=== PATIENT | female | born 1975 | race Caucasian/White ===

== ENCOUNTER 2016-08-26 08:26 | Emergency (ER) | payer SELFPAY ==
[~2016-08-26 08:26] MED LIST: DICY20TA3 PO; ONDA4TAB7 PO; SULF1TAB24 PO
[2016-08-26 08:42] VITALS: BP 171/110
--- NOTE | 2016-08-26 08:46 | PHYS DOC ---
Past Medical History Past Medical History: No Pertinent History Past Surgical History: Cholecystectomy, Tubal ligation Smokin Pack Per Day Alcohol Use: Occasionally Drug Use: None Adult General Chief Complaint Chief Complaint: SORE THROAT HPI HPI Patient is a 40 year old female who presents with sore throat for 5 days. She reports fever up to 103F. She has also had nasal congestion, left ear pain, and productive cough. She denies shortness of breath. She states that multiple family members have had upper respiratory infections believed to be viral. She relates that she typically gets "tonsillitis" annually. Her PCP is Dr. Mas. Review of Systems Review of Systems Constitutional: Reports fevers. Eyes: Denies change in visual acuity, redness, or eye pain. [] HENT: Reports sore throat, nasal congestion, and left ear pain. Respiratory: Denies shortness of breath. Reports productive cough. Cardiovascular: Denies chest pain, palpitations or edema. [] GI: Denies abdominal pain, nausea, vomiting, bloody stools or diarrhea. [] Musculoskeletal: Denies back pain or joint pain. [] Integument: Denies rash or skin lesions. [] Neurologic: Denies headache, focal weakness or sensory changes. [] Allergies Allergies Allergies Coded Allergies Type Severity Reaction Last Updated Verified terbutaline Allergy Severe 04/21/16 Yes Physical Exam Physical Exam Constitutional: Well developed, well nourished, no acute distress, non-toxic appearance. [] HENT: Normocephalic, atraumatic, bilateral external ears normal, oropharynx moist, no oral exudates, nose normal. Bilateral TMs without erythema or bulging. There is significant posterior pharyngeal erythema with bilateral tonsillar edema and exudates. There is no evidence of peritonsillar abscess or uvular deviation. Eyes: PERRLA, EOMI, conjunctiva normal, no discharge. [] Neck: Normal range of motion, no tenderness, supple, no stridor. [] Cardiovascular: Heart rate regular rhythm, no murmur [] Lungs & Thorax: Bilateral breath sounds clear to auscultation without wheezes, rales, or rhonchi. Skin: Warm, dry, no erythema, no rash. [] Neurologic: Alert and oriented X 3, normal motor function, normal sensory function, no focal deficits noted. [] Psychologic: Affect normal, judgement normal, mood normal. [] EKG EKG [] Radiology/Procedures Radiology/Procedures [] Course & Med Decision Making Course & Med Decision Making Pertinent Labs and Imaging studies reviewed. (See chart for details) Patient presents with sore throat and fever. There is no evidence of peritonsillar abscess. Rapid strep is positive. Patient is given an IM injection of Bicillin in the emergency department. She is instructed to take Tylenol or Motrin for fever or pain and increase her fluid intake. Return precautions were discussed. She verbalizes understanding and agrees with plan. Dragon Disclaimer Dragon Disclaimer This electronic medical record was generated, in whole or in part, using a voice recognition dictation system. Departure Departure Impression: Primary Impression: Strep throat Disposition: HOME, SELF-CARE Condition: STABLE Referrals: Ry MAS MD (PCP) Patient Instructions: Strep Throat, [id number] Additional Instructions: Your strep test was positive. You were given a shot of antibiotics in the emergency department. You should not require any additional treatment for the strep infection. Please take Tylenol or Motrin for fever or pain. Use according to package instructions. Please increase your fluid intake to remain hydrated. Return to the emergency department if you have high fever not responding to medication, difficulty breathing, difficulty swallowing, or other new or concerning symptoms. TOMY NELSON Aug 26, 2016 08:45
[2016-08-26] MEDS ORDERED: PENICILLIN G BENZATHINE LA 1,200,000 UNIT/2 ML DISP.SYRIN. IM ONE (09:15)
[2016-08-26 09:29] LABS: NEGATIVE OBC STREP NEG; POSITIVE OBC STREP POS
== END 2016-08-26 09:07 | disposition home or self-care (01) ==
LOC: ER 08:26
DX: J02.0 Streptococcal pharyngitis (principal); F17.200 Nicotine dependence, unspecified, uncomplicated; Z88.8 Allergy status to other drugs, medicaments and biological substances
CPT/HCPCS: 87880; 96372; 99283; J0561

== ENCOUNTER 2016-10-18 09:21 | Emergency (ER) | payer SELFPAY ==
[~2016-10-18] VITALS: Ht 165.1 cm; Wt 86.2 kg
--- NOTE | 2016-10-18 09:51 | PHYS DOC ---
Past Medical History Past Medical History: No Pertinent History Past Surgical History: Cholecystectomy, Tubal ligation Alcohol Use: Occasionally Drug Use: Marijuana Adult General Chief Complaint Chief Complaint: FEVER HPI HPI Patient is a 40 year old female with history of cholecystectomy, who presents with fever, diarrhea nausea and vomiting that began 3 days ago. Patient is also complaining of generalized bilateral upper abdominal pain. Patient denies any hematemesis or melena. Review of Systems Review of Systems Constitutional: Denies fever or chills [] Eyes: Denies change in visual acuity, redness, or eye pain [] HENT: Denies nasal congestion or sore throat [] Respiratory: Denies cough or shortness of breath [] Cardiovascular: No additional information not addressed in HPI [] GI: abdominal pain nausea and vomiting, diarrhea : Denies dysuria or hematuria [] Musculoskeletal: Denies back pain or joint pain [] Integument: Denies rash or skin lesions [] Neurologic: Denies headache, focal weakness or sensory changes [] Endocrine: Denies polyuria or polydipsia [] Current Medications Current Medications Current Medications Medications (Trade) Dose Ordered Sig/John Start Time Stop Time Status Last Admin Dose Admin Famotidine (Pepcid) 20 mg 1X ONCE 10/18/16 10:00 10/18/16 10:01 DC 10/18/16 10:14 20 MG Ketorolac Tromethamine (Toradol) 30 mg 1X ONCE 10/18/16 10:00 10/18/16 10:01 DC 10/18/16 10:14 30 MG Ondansetron HCl (Zofran) 4 mg 1X ONCE 10/18/16 10:00 10/18/16 10:01 DC 10/18/16 10:14 4 MG Sodium Chloride (Iv Sodium Chloride 0.9% 1000ml Bag) 1,000 ml @ 1,000 mls/hr 1X ONCE 10/18/16 10:00 10/18/16 10:59 DC 10/18/16 10:15 1,000 MLS/HR Allergies Allergies Allergies Coded Allergies Type Severity Reaction Last Updated Verified terbutaline Allergy Severe 04/21/16 Yes Physical Exam Physical Exam Constitutional: Well developed, well nourished, no acute distress, non-toxic appearance. [] HENT: Normocephalic, atraumatic, bilateral external ears normal, oropharynx moist, no oral exudates, nose normal. [] Eyes: PERRLA, EOMI, conjunctiva normal, no discharge. [] Neck: Normal range of motion, no tenderness, supple, no stridor. [] Cardiovascular:Heart rate regular rhythm, no murmur [] Lungs & Thorax: Bilateral breath sounds clear to auscultation [] Abdomen: Bowel sounds normal, soft, diffuse tenderness to bilateral upper abdomen, negative Cordero's sign, negative psoas sign, negative obturator sign, no guarding no rebound pain or tenderness no masses, no pulsatile masses. [] Skin: Warm, dry, no erythema, no rash. [] Back: No tenderness, no CVA tenderness. [] Extremities: No tenderness, no cyanosis, no clubbing, ROM intact, no edema. [] Neurologic: Alert and oriented X 3, normal motor function, normal sensory function, no focal deficits noted. [] Psychologic: Affect normal, judgement normal, mood normal. [] Current Patient Data Vital Signs Vital Signs Date Time Temp Pulse Resp B/P Pulse Ox O2 Delivery O2 Flow Rate FiO2 10/18/16 09:24 97.5 118 24 130/87 98 97.5 Lab Values Laboratory Tests Test 10/18/16 09:30 10/18/16 10:00 Influenza Type A Antigen Negative (NEGATIVE) Influenza Type B Antigen Positive (NEGATIVE) White Blood Count 15.1x10^3/uL (4.0-11.0) H Red Blood Count 4.66x10^6/uL (3.50-5.40) Hemoglobin 14.3g/dL (12.0-15.5) Hematocrit 42.8% (36.0-47.0) Mean Corpuscular Volume 92fL (79-100) Mean Corpuscular Hemoglobin 31pg (25-35) Mean Corpuscular Hemoglobin Concent 33g/dL (31-37) Red Cell Distribution Width 14.6% (11.5-14.5) H Platelet Count 195x10^3/uL (140-400) Neutrophils (%) (Auto) 77% (31-73) H Lymphocytes (%) (Auto) 16% (24-48) L Monocytes (%) (Auto) 6% (0-9) Eosinophils (%) (Auto) 0% (0-3) Basophils (%) (Auto) 1% (0-3) Neutrophils # (Auto) 11.6x10^3uL (1.8-7.7) H Lymphocytes # (Auto) 2.4x10^3/uL (1.0-4.8) Monocytes # (Auto) 0.9x10^3/uL (0.0-1.1) Eosinophils # (Auto) 0.0x10^3/uL (0.0-0.7) Basophils # (Auto) 0.2x10^3/uL (0.0-0.2) Sodium Level 139mmol/L (136-145) Potassium Level 3.4mmol/L (3.5-5.1) L Chloride Level 100mmol/L (98-107) Carbon Dioxide Level 26mmol/L (21-32) Anion Gap 13 (6-14) Blood Urea Nitrogen 13mg/dL (7-20) Creatinine 1.0mg/dL (0.6-1.0) Estimated GFR (Cockcroft-Gault) 61.1 Glucose Level 117mg/dL (70-99) H Calcium Level 9.2mg/dL (8.5-10.1) Laboratory Tests 10/18/16 10:00 Laboratory Tests 10/18/16 10:00 EKG EKG [] Radiology/Procedures Radiology/Procedures [] Course & Med Decision Making Course & Med Decision Making Pertinent Labs and Imaging studies reviewed. (See chart for details) Patient is in the ED with generalized bilateral upper abdominal pain nausea vomiting and diarrhea for 3 days. She is also complaining of fevers. She is afebrile in the ED. She was tachycardic on arrival with a heart rate of 118. Patient was given 1 L of IV fluid Zofran and Toradol and famotidine. She states she is feeling very well. Chest x-ray interpreted by radiologist as negative for any acute findings. Positive for influenza B. Patient's symptoms are viral. Discharged with instructions to push fluids. Maintain good hand hygiene. Discharged with Zofran. Provided return precautions and discharged in stable condition. Dragon Disclaimer Dragon Disclaimer This electronic medical record was generated, in whole or in part, using a voice recognition dictation system. Departure Departure Impression: Primary Impression: Influenza B Additional Impressions: Vomiting and diarrhea Tachycardia Disposition: HOME, SELF-CARE Condition: STABLE Referrals: Ry MAS MD (PCP) Follow-up with your own doctor in the next 1 week. Patient Instructions: Diarrhea, [id number], Nausea and Vomiting Additional Instructions: You tested positive for influenza B. This is a viral illness. It causes vomiting diarrhea and fevers. Please push fluids. Maintain good hand hygiene at home. Take Tylenol every 4 hours and Motrin every 6 hours as needed for pain or fever. Take the prescribed nausea medicine as needed. Follow-up with your own doctor in one week or sooner. Come to the ED if symptoms worsen. Scripts Ondansetron (Zofran Odt)4 Mg Tab.rapdis1 Tab SL Q8HRS #15 TAB Prov:SUJEY MCBRIDE APRN 10/18/16 Problem Qualifiers SUJEY MCBRIDE APRN Oct 18, 2016 09:51
[2016-10-18] MEDS ORDERED: KETOROLAC TROMETHAMINE 30 MG/ML SYRINGE. IV ONE (10:00)
[2016-10-18] MEDS ORDERED: ONDANSETRON PF 4 MG/2 ML VIAL. IV ONE (10:00)
[2016-10-18] MEDS ORDERED: FAMOTIDINE 20 MG/2 ML VIAL IVP ONE (10:00)
[2016-10-18] MEDS ORDERED: IV NORMAL SALINE 1000ML BAG 1,000 ML IV ONE (10:00)
[2016-10-18 10:03] LABS: OBC FLU VALID
--- NOTE | 2016-10-18 10:04 | RAD ---
Portable chest, 10/18/2016: History: Fever, shortness of breath, rib pain Comparison is made to a study from 03/24/2012. The heart size and pulmonary vascularity are normal. No pulmonary infiltrates are seen. There is no evidence of pleural fluid. IMPRESSION: No acute cardiopulmonary abnormality is detected.
[2016-10-18 10:21] LABS: BASO # 0.2 x10^3/uL (0.0-0.2); BASO % 1 % (0-3); EOS % 0 % (0-3); HEMATOCRIT 42.8 % (36.0-47.0); HEMOGLOBIN 14.3 g/dL (12.0-15.5); LYMPH # 2.4 x10^3/uL (1.0-4.8); LYMPH % 16 % (24-48); MEAN CORPUSCULAR HEMOGLOBIN 31 pg (25-35); MEAN CORPUSCULAR HGB CONC 33 g/dL (31-37); MEAN CORPUSCULAR VOLUME 92 fL (79-100); MONO % 6 % (0-9); NEUT % 77 % (31-73); PLATELET COUNT 195 x10^3/uL (140-400); RED BLOOD COUNT 4.66 x10^6/uL (3.50-5.40); RED CELL DISTRIBUTION WIDTH 14.6 % (11.5-14.5); WHITE BLOOD COUNT 15.1 x10^3/uL (4.0-11.0)
[2016-10-18 10:37] LABS: CALCIUM 9.2 mg/dL (8.5-10.1); GFR 61.1; POTASSIUM 3.4 mmol/L (3.5-5.1)
[2016-10-18 11:26] LABS: BILIRUBIN,URINE SMALL (NEG); GLUCOSE,URINE NEGATIVE (NEG); NITRITE,URINE NEGATIVE (NEG); PH,URINE 5.5; PROTEIN,URINE >=300 mg/dL (NEG-TRACE)
[2016-10-18] MEDS ORDERED: ONDA4TAB10 SL (11:41)
[2016-10-18 11:45] VITALS: BP 119/76
[2016-10-18 11:46] LABS: BACTERIA,URINE 0 /HPF (0-FEW); RBC,URINE TNTC /HPF (0-2)
== END 2016-10-18 11:55 | disposition home or self-care (01) ==
LOC: ER 09:21
DX: J11.1 Influenza due to unidentified influenza virus with other respiratory manifestations (principal); R11.2 Nausea with vomiting, unspecified; R19.7 Diarrhea, unspecified; R00.0 Tachycardia, unspecified; F12.10 Cannabis abuse, uncomplicated; Z88.8 Allergy status to other drugs, medicaments and biological substances
CPT/HCPCS: 36415; 71010; 80048; 81001; 85027; 87086; 87804; 96361; 96374; 96375; 99285; J1885; J2405; J7030; S0028

== ENCOUNTER 2017-05-10 22:24 | Emergency (ER) | payer SELFPAY ==
[~2017-05-10] VITALS: Ht 165.1 cm; Wt 86.2 kg
[~2017-05-10 22:24] MED LIST changes: +ONDA4TAB10 SL
[2017-05-10 22:50] VITALS: BP 187/110
[2017-05-10] MEDS ORDERED: DIPHTH,PERTUSS(ACELL),TET TOX 0.5 ML DISP.SYRIN. VAX IM ONE (23:30)
[2017-05-10] MEDS ORDERED: LIDOCAINE/EPI/TETRACAINE TOPICAL GEL 3 ML. TP ONE ×2 (23:30)
[2017-05-10] MEDS ORDERED: LIDOCAINE 1% / SOD BICARB 8.4% 20 ML VIAL. IJ ONE (23:30)
--- NOTE | 2017-05-11 00:02 | PHYS DOC ---
Past Medical History Past Medical History: No Pertinent History Past Surgical History: Cholecystectomy, Tubal ligation Alcohol Use: Occasionally Drug Use: Marijuana Adult General Chief Complaint Chief Complaint: ANIMAL BITE HPI HPI Patient is a 41 year old female who presents with dog bite to the right lower extremity. Patient got bit by her own pitbull mix dog. Review of Systems Review of Systems Constitutional: Denies fever or chills [] Musculoskeletal: Denies back pain or joint pain [] Integument: dog bite to the right lower extremity Neurologic: Denies headache, focal weakness or sensory changes [] Current Medications Current Medications Current Medications Medications (Trade) Dose Ordered Sig/John Start Time Stop Time Status Last Admin Dose Admin Diphtheria/ Tetanus/Acell Pertussis (Boostrix) 0.5 ml ONCE ONCE 05/10/17 23:30 05/10/17 23:31 DC 05/10/17 23:21 0.5 ML Lidocaine/ Epinephrine (Let Topical) 3 ml 1X ONCE 05/10/17 23:30 05/10/17 23:31 DC 05/10/17 23:19 3 ML Lidocaine/Sodium Bicarbonate (Buffered Lidocaine 1%) 20 ml 1X ONCE 05/10/17 23:30 05/10/17 23:31 DC 05/10/17 23:24 20 ML Allergies Allergies Allergies Coded Allergies Type Severity Reaction Last Updated Verified terbutaline Allergy Severe 04/21/16 Yes Physical Exam Physical Exam Constitutional: Well developed, well nourished, no acute distress, non-toxic appearance. [] Skin: right Achilles tendon area with a dog bite horizontal laceration approx. 13X3X2 cm. Patient able to flex and extend the foot with negative sharma sign. +2 right pedal pulse. Cap refill <2 seconds to the RLE Back: No tenderness, no CVA tenderness. [] Extremities: No tenderness, no cyanosis, no clubbing, ROM intact, no edema. [] Neurologic: Alert and oriented X 3, normal motor function, normal sensory function, no focal deficits noted. [] Psychologic: Affect normal, judgement normal, mood normal. [] Current Patient Data Vital Signs Vital Signs Date Time Temp Pulse Resp B/P (MAP) Pulse Ox O2 Delivery O2 Flow Rate FiO2 05/10/17 22:50 98.3 90 19 99 Room Air 98.3 EKG EKG [] Radiology/Procedures Radiology/Procedures Indication: Dog bite to the right lower extremity Procedure: The patient was placed in the appropriate position and anesthesia around the left solution then 1% buffered lidocaine, the area was explored for foreign objects, none was found. The area was cleaned with 500 ML of normal saline and 30 mL of Betadine. The inner lacerations were closed with 4 interrupted sutures using 3. 0 Vicryl, exterior laceration was closed with 19 interrupted sutures using 3. 0 Ethilon. There is also 1 cm laceration next to this area. It was closed with one interrupted sutures using 3. 0 Ethilon. The wound was covered with nonstick dressing. Course & Med Decision Making Course & Med Decision Making Pertinent Labs and Imaging studies reviewed. (See chart for details) Patient has right lower extremity dog bite. Right tib-fib x-rays interpreted by Dr. Kern were negative for any acute findings. Patient's dog bite was very deep. I had to put loose stitches just to bring the skin together. She was provided proper wound care instructions as well as return precautions, she was discharged on Augmentin. Tetanus was updated. Dragon Disclaimer Dragon Disclaimer This electronic medical record was generated, in whole or in part, using a voice recognition dictation system. Departure Departure Impression: Primary Impression: Dog bite of right lower leg Disposition: 01 HOME, SELF-CARE Condition: STABLE Referrals: Ry ANDRES MD (PCP) see your doctor in 7 days for suture removal Patient Instructions: Animal Bite Additional Instructions: You were seen for a dog bite to the right lower extremity. Keep the area very clean and dry. Apply Neosporin to the area twice a day. Complete your oral antibiotics. Follow up with Dr. Andres or the emergency room in 7 days for stitches removal. Monitor the area very closely. Signs of infection including increased redness, yellow drainage from the area, increased warmth to the area and return to the ED see Dr. Andres if they occur. If you have a fever you return to the hospital. Scripts Hydrocodone/Apap 5-325 (NORCO 5-325 TABLET) 1 Each Tablet 1-2 TAB PO Q4-6HRS, #20 TAB Prov: MUTUNGASUJEY RUNNER ON 05/11/17 Amoxicillin/Potassium Clav (AUGMENTIN 875-125 TABLET) 1 Each Tablet 1 TAB PO BID, #20 TAB Prov: MUTUNGA,SUJEY RUNNER ON 05/11/17 Problem Qualifiers Primary Impression: Dog bite of right lower leg Encounter type: initial encounter Qualified Codes: S81.851A - Open bite, right lower leg, initial encounter; W54.0XXA - Bitten by dog, initial encounter SUJEY MCBRIDE APRN May 11, 2017 00:02
[2017-05-11] MEDS ORDERED: AMOX1TAB61 PO (00:56)
[2017-05-11] MEDS ORDERED: HYDR-971 PO (00:56)
--- NOTE | 2017-05-11 07:59 | RAD ---
Right tibia and fibula, 2 views, 05/10/2017: History: Dog bite No fracture or bony abnormality is detected. There is mild subcutaneous edema. IMPRESSION: No acute bony abnormality is detected.
== END 2017-05-11 01:01 | disposition home or self-care (01) ==
LOC: ER 22:24
DX: S81.851A Open bite, right lower leg, initial encounter (principal); Z88.8 Allergy status to other drugs, medicaments and biological substances; W54.0XXA Bitten by dog, initial encounter; Y93.89 Activity, other specified; Y92.89 Other specified places as the place of occurrence of the external cause; Y99.8 Other external cause status
CPT/HCPCS: 12035; 73590; 90471; 90715; 99284-25

== ENCOUNTER 2017-10-18 09:58 | Emergency (ER) | payer SELFPAY ==
[2017-10-18] MEDS: ALBUTEROL SULFATE 2.5 MG/3 ML NEBU. NEB (10:33)
[2017-10-18] MEDS: predniSONE 10 MG TABLET PO (10:53)
[2017-10-18 10:55] LABS: INFLUENZA A PATIENT NEGATIVE (NEGATIVE); INFLUENZA B PATIENT NEGATIVE (NEGATIVE); OBC FLU VALID
== END 2017-10-18 12:05 | disposition home or self-care (01) ==
LOC: ER 09:58
DX: J40 Bronchitis, not specified as acute or chronic (principal); F12.10 Cannabis abuse, uncomplicated; F17.200 Nicotine dependence, unspecified, uncomplicated; Z90.49 Acquired absence of other specified parts of digestive tract; Z98.51 Tubal ligation status; Z87.01 Personal history of pneumonia (recurrent); Z88.8 Allergy status to other drugs, medicaments and biological substances
CPT/HCPCS: 71046; 87804; 87804-59; 94640; 99285-25; J7512; J7613

== ENCOUNTER 2018-09-05 08:04 | Emergency (ER) | payer SELFPAY ==
[~2018-09-05] VITALS: Ht 167.6 cm; Wt 83.9 kg
[~2018-09-05 08:04] MED LIST changes: +ALBU2.5V8 INH; +AMOX1TAB61 PO; +AZIT250T PO; +HYDR-3164 PO; +PRED50TA PO
[2018-09-05] MEDS ORDERED: IV NORMAL SALINE 1000ML BAG 1,000 ML IV SCH (08:22)
--- NOTE | 2018-09-05 08:29 | PHYS DOC ---
Past Medical History Past Medical History: COPD, Pancreatitis Past Surgical History: Cholecystectomy, Tubal ligation Smoking: Cigarettes, Less than 1pk/day Alcohol Use: Occasionally Drug Use: Marijuana Adult General Chief Complaint Chief Complaint: "I've been sick for a month" HPI HPI Patient presents to the emergency department for evaluation. She states that she has had "congestion" in her nose and chest for the past month, along with a couple of weeks of intermittent nausea vomiting and diarrhea, which has increased over the past few days. She states she vomited numerous times over the past 3-4 hours. She has not had any bloody emesis, bloody diarrhea. She denies any focal pain. She has not had any fevers or chills, headache, chest pain, abdominal pain, numbness or weakness. She has not had any productive cough. There are no alleviating or exacerbating factors to her symptoms. Review of Systems Review of Systems Constitutional: Denies fever or chills [] Eyes: Denies change in visual acuity, redness, or eye pain [] HENT: Denies otalgia or sore throat [] Respiratory: Reports chest congestion and shortness of breath.[] Cardiovascular: The patient denies any shortness of breath, chest pain, palpitations, or orthopnea [] GI: Denies abdominal pain, bloody stools or diarrhea [] : Denies dysuria or hematuria [] Musculoskeletal: Denies back pain or joint pain [] Integument: Denies rash or skin lesions [] Neurologic: Denies headache, focal weakness or sensory changes [] Endocrine: Denies polyuria or polydipsia [] All other systems were reviewed and found to be within normal limits, except as documented in this note. Current Medications Current Medications Current Medications Medications (Trade) Dose Ordered Sig/[facility] Start Time Stop Time Status Last Admin Dose Admin Albuterol/ Ipratropium (Duoneb) 3 ml 1X ONCE 09/05/18 08:30 09/05/18 08:31 DC 09/05/18 08:36 3 ML Methylprednisolone Sodium Succinate (SOLU-Medrol 125MG VIAL) 125 mg 1X ONCE 09/05/18 08:30 09/05/18 08:31 DC 09/05/18 08:47 125 MG Ondansetron HCl (Zofran) 4 mg 1X ONCE 09/05/18 08:30 09/05/18 08:31 DC 09/05/18 08:45 4 MG Sodium Chloride 1,000 ml @ 1,000 mls/hr Q1H 09/05/18 08:22 09/05/18 09:21 DC 09/05/18 08:45 1,000 MLS/HR Allergies Allergies Allergies Coded Allergies Type Severity Reaction Last Updated Verified terbutaline Allergy Severe 04/21/16 Yes Physical Exam Physical Exam PHYSICAL EXAM: CONSTITUTIONAL: Well developed, well nourished HEAD: normocephalic, atraumatic EENT: PERRL, EOMI. Conjunctivae normal color, sclerae non-icteric; moist mucous membranes. NECK: Supple, non-tender; no meningismus. LUNGS: There are scattered coarse wheezes in all lung terrell, CTA, breathing even and unlabored. Normal air movement. HEART: Regular rate and rhythm, no murmur CHEST: No deformity; non-tender ABDOMEN: The abdomen is soft, and non-tender, no masses or bruits. EXTREM: Normal ROM; no deformity, no calf tenderness. Normal pulses palpable in all extremities. There is no pedal edema. SKIN: No rash; no diaphoresis NEURO: Alert; normal speech and cognition; CN's grossly intact; strength grossly intact without focal deficit. BACK: No CVA TTP. Current Patient Data Vital Signs Vital Signs Date Time Temp Pulse Resp B/P (MAP) Pulse Ox O2 Delivery O2 Flow Rate FiO2 09/05/18 08:38 97 Room Air 09/05/18 08:09 97.9 108 18 131/99 (110) 97.9 Lab Values Laboratory Tests Test 09/05/18 08:20 09/05/18 08:40 Influenza Type A Antigen Negative (NEGATIVE) Influenza Type B Antigen Negative (NEGATIVE) White Blood Count 10.2 x10^3/uL (4.0-11.0) Red Blood Count 4.26 x10^6/uL (3.50-5.40) Hemoglobin 13.2 g/dL (12.0-15.5) Hematocrit 38.9 % (36.0-47.0) Mean Corpuscular Volume 91 fL (79-100) Mean Corpuscular Hemoglobin 31 pg (25-35) Mean Corpuscular Hemoglobin Concent 34 g/dL (31-37) Red Cell Distribution Width 14.7 % (11.5-14.5) H Platelet Count 303 x10^3/uL (140-400) Neutrophils (%) (Auto) 65 % (31-73) Lymphocytes (%) (Auto) 25 % (24-48) Monocytes (%) (Auto) 6 % (0-9) Eosinophils (%) (Auto) 3 % (0-3) Basophils (%) (Auto) 1 % (0-3) Neutrophils # (Auto) 6.6 x10^3uL (1.8-7.7) Lymphocytes # (Auto) 2.5 x10^3/uL (1.0-4.8) Monocytes # (Auto) 0.6 x10^3/uL (0.0-1.1) Eosinophils # (Auto) 0.3 x10^3/uL (0.0-0.7) Basophils # (Auto) 0.1 x10^3/uL (0.0-0.2) Sodium Level 138 mmol/L (136-145) Potassium Level 3.9 mmol/L (3.5-5.1) Chloride Level 100 mmol/L (98-107) Carbon Dioxide Level 24 mmol/L (21-32) Anion Gap 14 (6-14) Blood Urea Nitrogen 6 mg/dL (7-20) L Creatinine 0.9 mg/dL (0.6-1.0) Estimated GFR (Cockcroft-Gault) 68.3 BUN/Creatinine Ratio 7 (6-20) Glucose Level 106 mg/dL (70-99) H Calcium Level 9.1 mg/dL (8.5-10.1) Total Bilirubin 0.4 mg/dL (0.2-1.0) Aspartate Amino Transferase (AST) 16 U/L (15-37) Alanine Aminotransferase (ALT) 24 U/L (14-59) Alkaline Phosphatase 80 U/L (46-116) Total Protein 7.9 g/dL (6.4-8.2) Albumin 3.6 g/dL (3.4-5.0) Albumin/Globulin Ratio 0.8 (1.0-1.7) L Laboratory Tests 09/05/18 08:40 Laboratory Tests 09/05/18 08:40 EKG EKG [] Radiology/Procedures Radiology/Procedures [PROCEDURE: CHEST PA & LATERAL EXAM: Chest, 2 views. HISTORY: Cough. COMPARISON: 10/18/2017 FINDINGS: 2 views of the chest are obtained. There is stable right infrahilar opacity likely due to prominent pulmonary vascular shadows. There is no consolidation, pleural effusion or pneumothorax. The heart is normal in size. There is a stable calcified granuloma within the lingula. There is stable left infrahilar atelectasis or scarring. IMPRESSION: No acute pulmonary finding.] Course & Med Decision Making Course & Med Decision Making Pertinent Labs and Imaging studies reviewed. (See chart for details) [9:30 AM: The patient's condition remains stable. She is feeling significantly better at this time, her breath sounds have improved. I discussed smoking cessation with the patient, the need for close follow-up, and return precautions.] Dragon Disclaimer Dragon Disclaimer This electronic medical record was generated, in whole or in part, using a voice recognition dictation system. Departure Departure Impression: Primary Impression: Bronchitis Additional Impression: Nausea vomiting and diarrhea Disposition: 01 HOME, SELF-CARE Condition: STABLE Referrals: Ry MAS MD (PCP) Patient Instructions: Acute Bronchitis, Smoking Cessation, Viral Gastroenteritis Scripts Ondansetron Hcl (ZOFRAN) 4 Mg Tablet 1 TAB PO Q6HRS PRN for NAUSEA/VOMITING, #20 TAB Prov: BETH LUX MD 09/05/18 Albuterol Sulfate (PROAIR HFA INHALER) 8.5 Gm Hfa.aer.ad 1 PUFF INH PRN Q6HRS PRN for SHORTNESS OF BREATH, #1 INHALER 0 Refills Prov: BETH LUX MD 09/05/18 Prednisone (PREDNISONE) 20 Mg Tablet 40 MG PO DAILY for 5 Days, #10 TAB Prov: BETH LUX MD 09/05/18 Problem Qualifiers BETH LUX MD Sep 05, 2018 08:29
[2018-09-05] MEDS ORDERED: ONDANSETRON PF 4 MG/2 ML VIAL. IV ONE (08:30)
[2018-09-05] MEDS ORDERED: methylPREDNISolone SOD SUCC PF 125 MG/2 ML VIAL. IV ONE (08:30)
[2018-09-05] MEDS ORDERED: IPRATRPIUM/ALBUTEROL 0.5/2.5MG 3 ML NEBU. NEB ONE (08:30)
[2018-09-05 08:45] LABS: INFLUENZA A PATIENT NEGATIVE (NEGATIVE); INFLUENZA B PATIENT NEGATIVE (NEGATIVE)
--- NOTE | 2018-09-05 08:51 | RAD ---
EXAM: Chest, 2 views. HISTORY: Cough. COMPARISON: 10/18/2017 FINDINGS: 2 views of the chest are obtained. There is stable right infrahilar opacity likely due to prominent pulmonary vascular shadows. There is no consolidation, pleural effusion or pneumothorax. The heart is normal in size. There is a stable calcified granuloma within the lingula. There is stable left infrahilar atelectasis or scarring. IMPRESSION: No acute pulmonary finding. Electronically signed by: Geraldine Oliva MD (09/05/2018 8:46 AM) [place] [id number]
[2018-09-05 08:57] LABS: BASO # 0.1 x10^3/uL (0.0-0.2); BASO % 1 % (0-3); EOS # 0.3 x10^3/uL (0.0-0.7); EOS % 3 % (0-3); HEMATOCRIT 38.9 % (36.0-47.0); HEMOGLOBIN 13.2 g/dL (12.0-15.5); LYMPH # 2.5 x10^3/uL (1.0-4.8); LYMPH % 25 % (24-48); MEAN CORPUSCULAR HEMOGLOBIN 31 pg (25-35); MEAN CORPUSCULAR HGB CONC 34 g/dL (31-37); MEAN CORPUSCULAR VOLUME 91 fL (79-100); MONO # 0.6 x10^3/uL (0.0-1.1); MONO % 6 % (0-9); NEUT # 6.6 x10^3uL (1.8-7.7); NEUT % 65 % (31-73); PLATELET COUNT 303 x10^3/uL (140-400); RED BLOOD COUNT 4.26 x10^6/uL (3.50-5.40); RED CELL DISTRIBUTION WIDTH 14.7 % (11.5-14.5); WHITE BLOOD COUNT 10.2 x10^3/uL (4.0-11.0)
[2018-09-05 09:01] LABS: CALCIUM 9.1 mg/dL (8.5-10.1); CREATININE 0.9 mg/dL (0.6-1.0); GFR 68.3; POTASSIUM 3.9 mmol/L (3.5-5.1)
[2018-09-05 09:06] LABS: ALBUMIN 3.6 g/dL (3.4-5.0); ALBUMIN/GLOBULIN RATIO 0.8 (1.0-1.7); TOTAL BILIRUBIN 0.4 mg/dL (0.2-1.0); TOTAL PROTEIN 7.9 g/dL (6.4-8.2)
[2018-09-05 09:30] VITALS: BP 120/81
[2018-09-05] MEDS ORDERED: PRED20TA PO (09:35)
[2018-09-05] MEDS ORDERED: ALBU2.5V8 INH (09:35)
[2018-09-05] MEDS ORDERED: ONDA4TAB7 PO (09:35)
== END 2018-09-05 09:50 | disposition home or self-care (01) ==
LOC: ER 08:04
DX: J44.9 Chronic obstructive pulmonary disease, unspecified (principal); R11.2 Nausea with vomiting, unspecified; R19.7 Diarrhea, unspecified; Z90.49 Acquired absence of other specified parts of digestive tract; F17.210 Nicotine dependence, cigarettes, uncomplicated; Z98.51 Tubal ligation status; Z88.8 Allergy status to other drugs, medicaments and biological substances
CPT/HCPCS: 36415; 71046; 80053; 85025; 87804; 94640; 96361; 96374; 96375; 99284; J2405; J2930; J7030; J7620

== ENCOUNTER 2019-01-10 21:53 | Emergency (ER) | payer SELFPAY ==
[~2019-01-10] VITALS: Ht 165.1 cm; Wt 83.9 kg
[~2019-01-10 21:53] MED LIST changes: +PRED20TA PO
[2019-01-10] MEDS ORDERED: DEXAMETHASONE 4 MG TABLET PO ONE (22:15)
[2019-01-10] MEDS ORDERED: IV NORMAL SALINE 1000ML BAG 1,000 ML IV ONE (22:30)
[2019-01-10 22:36] LABS: BILIRUBIN,URINE NEGATIVE (NEG); CLARITY,URINE CLEAR; COLOR,URINE YELLOW; NITRITE,URINE NEGATIVE (NEG); PROTEIN,URINE NEGATIVE (NEG-TRACE); UROBILINOGEN,URINE 0.2 mg/dL (0.2 mg/dL)
[2019-01-10 22:40] LABS: U PREG PATIENT NEGATIVE (NEG)
[2019-01-10 22:42] LABS: SQUAMOUS EPITHELIAL CELL,UR MOD /LPF
[2019-01-10 22:43] LABS: BACTERIA,URINE FEW /HPF (0-FEW); RBC,URINE OCC /HPF (0-2)
[2019-01-10 22:50] LABS: BASO # 0.1 x10^3/uL (0.0-0.2); BASO % 1 % (0-3); EOS # 0.3 x10^3/uL (0.0-0.7); EOS % 2 % (0-3); HEMATOCRIT 38.9 % (36.0-47.0); HEMOGLOBIN 13.1 g/dL (12.0-15.5); LYMPH # 3.3 x10^3/uL (1.0-4.8); LYMPH % 27 % (24-48); MEAN CORPUSCULAR HEMOGLOBIN 31 pg (25-35); MEAN CORPUSCULAR HGB CONC 34 g/dL (31-37); MEAN CORPUSCULAR VOLUME 91 fL (79-100); MONO # 0.6 x10^3/uL (0.0-1.1); MONO % 5 % (0-9); NEUT # 7.8 x10^3uL (1.8-7.7); NEUT % 65 % (31-73); PLATELET COUNT 278 x10^3/uL (140-400); RED BLOOD COUNT 4.27 x10^6/uL (3.50-5.40); RED CELL DISTRIBUTION WIDTH 14.5 % (11.5-14.5); WHITE BLOOD COUNT 12.2 x10^3/uL (4.0-11.0)
[2019-01-10 22:59] LABS: PARTIAL THROMBOPLASTIN TIME 31 SEC (24-38)
[2019-01-10 23:02] LABS: CALCIUM 9.1 mg/dL (8.5-10.1); CREATININE 0.8 mg/dL (0.6-1.0); GFR 77.9; POTASSIUM 3.8 mmol/L (3.5-5.1)
[2019-01-10 23:05] LABS: PROTHROMBIN TIME PATIENT 13.5 SEC (11.7-14.0)
[2019-01-10 23:09] LABS: D-DIMER < 0.27 ug/mlFEU (0.00-0.50)
[2019-01-10 23:17] LABS: ALBUMIN 3.6 g/dL (3.4-5.0); ALBUMIN/GLOBULIN RATIO 0.9 (1.0-1.7); TOTAL BILIRUBIN 0.2 mg/dL (0.2-1.0); TOTAL PROTEIN 7.4 g/dL (6.4-8.2)
--- NOTE | 2019-01-10 23:17 | RAD ---
CHEST PA LATERAL History: Cough Comparison: 09/05/2018; September 28, 2017; March 24, 2012 Findings: 2 views of the chest are submitted. There is again small round nodular opacity at the left lung base although present dating back to 2012 exam. There is no new lobar consolidation, pleural fluid, pneumothorax. Heart size is stable, within normal limits. Impression: 1. No acute radiographic abnormality is identified. Electronically signed by: Sherman Chan MD (01/10/2019 11:15 PM) [facility]
[2019-01-10 23:19] LABS: CREATINE KINASE 71 U/L (26-192)
--- NOTE | 2019-01-10 23:35 | PHYS DOC ---
Past Medical History Past Medical History: COPD, Pancreatitis Past Surgical History: Cholecystectomy, Tubal ligation Additional Information: 8 smokes a day. Alcohol Use: Occasionally Drug Use: Marijuana Adult General Chief Complaint Chief Complaint: SHORTNESS OF BREATH HPI HPI 43-year-old female presents with one-week history of shortness of breath despite utilization of inhalers and nebulizers at home. Patient also reports associated nausea, vomiting, and diarrhea. Patient denies known sick contacts. Denies fever or chills. Patient reports she is in a very day smoker. Denies leg swelling or calf tenderness. Patient does report some left-sided chest wall discomfort which is worse with deep inspiration. Denies history of PE/DVT. Review of Systems Review of Systems Constitutional: Denies fever or chills Eyes: Denies redness or eye pain HENT: Reports nasal congestion; denies sore throat Respiratory: Reports cough and shortness of breath Cardiovascular: Reports chest pain; denies palpitations GI: Denies abdominal pain, nausea, or vomiting : Denies dysuria or hematuria Musculoskeletal: Denies back pain or joint pain Integument: Denies rash or skin lesions Neurologic: Denies headache, focal weakness or sensory changes Complete systems were reviewed and found to be within normal limits, except as documented in this note. Current Medications Current Medications Current Medications Medications (Trade) Dose Ordered Sig/John Start Time Stop Time Status Last Admin Dose Admin Dexamethasone (Decadron) 10 mg 1X ONCE 01/10/19 22:15 01/10/19 22:16 DC 01/10/19 22:44 10 MG Ondansetron HCl (Zofran Odt) 4 mg STK-MED ONCE 01/10/19 23:43 01/10/19 23:44 DC Sodium Chloride 1,000 ml @ 1,000 mls/hr 1X ONCE 01/10/19 22:30 01/10/19 23:29 DC 01/10/19 22:45 1,000 MLS/HR Allergies Allergies Allergies Coded Allergies Type Severity Reaction Last Updated Verified terbutaline Allergy Severe 04/21/16 Yes Physical Exam Physical Exam Constitutional: Well developed, well nourished, no acute distress, non-toxic appearance HENT: Normocephalic, atraumatic, oropharynx moist, nasal congestion noted, pharynx without erythema or tonsillar exudate. Eyes: Conjunctiva normal, no discharge Neck: Normal range of motion, no tenderness, supple Cardiovascular: Heart rate normal, regular rhythm Lungs & Thorax: Bilateral breath sounds clear to auscultation, no wheezing/rhonchi/rales Abdomen: Soft, no tenderness Skin: Warm, dry, no erythema, no rash Extremities: No tenderness, ROM intact, no edema Neurologic: Alert and oriented X 3, no focal deficits noted Psychologic: Affect normal, judgement normal Current Patient Data Vital Signs Vital Signs Date Time Temp Pulse Resp B/P (MAP) Pulse Ox O2 Delivery O2 Flow Rate FiO2 01/11/19 00:52 90 24 127/85 (99) 97 Room Air 01/10/19 22:10 98.2 98.2 Lab Values Laboratory Tests Test 01/10/19 22:07 01/10/19 22:33 Urine Collection Type Unknown Urine Color Yellow Urine Clarity Clear Urine pH 6.0 Urine Specific [place] 1.015 Urine Protein Negative mg/dL (NEG-TRACE) Urine Glucose (UA) Negative mg/dL (NEG) Urine Ketones (Stick) Negative mg/dL (NEG) Urine Blood Negative (NEG) Urine Nitrite Negative (NEG) Urine Bilirubin Negative (NEG) Urine Urobilinogen Dipstick 0.2 mg/dL (0.2 mg/dL) Urine Leukocyte Esterase Small (NEG) Urine RBC Occ /HPF (0-2) Urine WBC 1-4 /HPF (0-4) Urine Squamous Epithelial Cells Mod /LPF Urine Bacteria Few /HPF (0-FEW) Urine Mucus Slight /LPF Urine Test Negative (NEG) White Blood Count 12.2 x10^3/uL (4.0-11.0) H Red Blood Count 4.27 x10^6/uL (3.50-5.40) Hemoglobin 13.1 g/dL (12.0-15.5) Hematocrit 38.9 % (36.0-47.0) Mean Corpuscular Volume 91 fL (79-100) Mean Corpuscular Hemoglobin 31 pg (25-35) Mean Corpuscular Hemoglobin Concent 34 g/dL (31-37) Red Cell Distribution Width 14.5 % (11.5-14.5) Platelet Count 278 x10^3/uL (140-400) Neutrophils (%) (Auto) 65 % (31-73) Lymphocytes (%) (Auto) 27 % (24-48) Monocytes (%) (Auto) 5 % (0-9) Eosinophils (%) (Auto) 2 % (0-3) Basophils (%) (Auto) 1 % (0-3) Neutrophils # (Auto) 7.8 x10^3uL (1.8-7.7) H Lymphocytes # (Auto) 3.3 x10^3/uL (1.0-4.8) Monocytes # (Auto) 0.6 x10^3/uL (0.0-1.1) Eosinophils # (Auto) 0.3 x10^3/uL (0.0-0.7) Basophils # (Auto) 0.1 x10^3/uL (0.0-0.2) Prothrombin Time 13.5 SEC (11.7-14.0) Prothrombin Time INR 1.1 (0.8-1.1) PTT 31 SEC (24-38) D-Dimer (Katelin) < 0.27 ug/mlFEU Sodium Level 140 mmol/L (136-145) Potassium Level 3.8 mmol/L (3.5-5.1) Chloride Level 104 mmol/L (98-107) Carbon Dioxide Level 22 mmol/L (21-32) Anion Gap 14 (6-14) Blood Urea Nitrogen 9 mg/dL (7-20) Creatinine 0.8 mg/dL (0.6-1.0) Estimated GFR (Cockcroft-Gault) 77.9 BUN/Creatinine Ratio 11 (6-20) Glucose Level 102 mg/dL (70-99) H Lactic Acid Level 1.3 mmol/L (0.4-2.0) Calcium Level 9.1 mg/dL (8.5-10.1) Magnesium Level 2.0 mg/dL (1.8-2.4) Total Bilirubin 0.2 mg/dL (0.2-1.0) Aspartate Amino Transferase (AST) 24 U/L (15-37) Alanine Aminotransferase (ALT) 40 U/L (14-59) Alkaline Phosphatase 70 U/L (46-116) Creatine Kinase 71 U/L (26-192) Creatine Kinase MB (Mass) 0.8 ng/mL (0.0-3.6) Creatine Kinase MB Relative Index % (0-4) Troponin I Quantitative < 0.017 ng/mL (0.000-0.055) AL-Shp-Z-Type Natriuretic Peptide 46 pg/mL (0-124) Total Protein 7.4 g/dL (6.4-8.2) Albumin 3.6 g/dL (3.4-5.0) Albumin/Globulin Ratio 0.9 (1.0-1.7) L Lipase 113 U/L (73-393) Laboratory Tests 01/10/19 22:33 Laboratory Tests 01/10/19 22:33 EKG EKG @2230 NSR 92bpm, NO ST elevation Radiology/Procedures Radiology/Procedures PROCEDURE: CHEST PA & LATERAL CHEST PA LATERAL History: Cough Comparison: 09/05/2018; September 28, 2017; March 24, 2012 Findings: 2 views of the chest are submitted. There is again small round nodular opacity at the left lung base although present dating back to 2011 exam. There is no new lobar consolidation, pleural fluid, pneumothorax. Heart size is stable, within normal limits. Impression: 1. No acute radiographic abnormality is identified. Electronically signed by: Sherman Chan MD (01/10/2019 11:15 PM) [facility] Course & Med Decision Making Course & Med Decision Making Pertinent Labs and Imaging studies reviewed. (See chart for details) Patient presents with history of present illness and physical exam consistent for acute bronchitis. Patient did report some chest wall discomfort. No calf tenderness appreciated. EKG stable. Labs obtained and posted to chart. Troponin and d-dimer within normal limits. Symptomatic treatment provided with interval improvement of symptoms. Chest x-ray clear. Patient stable for discharge with outpatient follow-up with PCP. Discussed findings and plan with patient, who acknowledges understanding and agreement. Empiric antibiotics provided with instructions to watch and wait for 48 hours prior to initiation. Dragon Disclaimer Dragon Disclaimer This electronic medical record was generated, in whole or in part, using a voice recognition dictation system. Departure Departure Impression: Primary Impression: Acute bronchitis Additional Impression: Atypical chest pain Disposition: 01 HOME, SELF-CARE Condition: STABLE Referrals: Ry MAS MD (PCP) Patient Instructions: Acute Bronchitis, [id number], Chest Pain (Nonspecific), [id number] Additional Instructions: Hold antibiotics for 48 hours. If symptoms worsen or for fever > 100.3 F after 48 hours then start antibiotics as prescribed. Scripts Prednisone (PREDNISONE) 20 Mg Tablet 2 TAB PO DAILY, #8 TAB Prov: RAFAEL CARRILLO DO 01/11/19 Albuterol Sulfate (PROAIR HFA INHALER) 8.5 Gm Hfa.aer.ad 1 PUFF INH PRN Q6HRS PRN for SHORTNESS OF BREATH, #1 INHALER 0 Refills Prov: RAFAEL CARRILLO DO 01/11/19 Azithromycin (ZITHROMAX) 250 Mg Tablet 1 PKG PO UD for bronchitis, #6 TAB Take 2 tablets on day 1 and then 1 tablet each day for the next 4 days as directed Prov: RAFAEL CARRILLO DO 01/11/19 Problem Qualifiers Primary Impression: Acute bronchitis Bronchitis organism: unspecified organism Qualified Codes: J20.9 - Acute bronchitis, unspecified RAFAEL CARRILLO DO Jan 10, 2019 23:34
[2019-01-10] MEDS ORDERED: ONDANSETRON ODT 4 MG TAB.RAPDIS. ONE (23:43)
[2019-01-10] MEDS ORDERED: ONDANSETRON ODT 4 MG TAB.RAPDIS. PO ONE (23:45)
[2019-01-11] MEDS ORDERED: AZIT250T PO (00:48)
[2019-01-11] MEDS ORDERED: PRED20TA PO (00:48)
[2019-01-11] MEDS ORDERED: ALBU2.5V8 INH (00:48)
[2019-01-11 00:52] VITALS: BP 127/85
--- NOTE | 2019-01-11 05:58 | EKG ---
[facility] [address] [place] [address] Test Date: 2019-01-10 Test Time: 22:30:28 Pat Name: ESTEFANY TAYLOR Department: Room: Gender: F Council Member: : 1975 Requested By: RAFAEL CARRILLO Order Number: [id number] Reading MD: Measurements Intervals [place] Rate: 92 P: 74 [place]: 138 QRS: 45 QRSD: 76 T: 49 QT: 348 QTc: 435 Interpretive Statements SINUS RHYTHM LEFT ATRIAL ABNORMALITY ABNORMAL ECG RI6.01 Unconfirmed report No previous ECG available for comparison
== END 2019-01-11 01:00 | disposition home or self-care (01) ==
LOC: ER 21:53
DX: J20.9 Acute bronchitis, unspecified (principal); R07.89 Other chest pain; J44.9 Chronic obstructive pulmonary disease, unspecified; R11.2 Nausea with vomiting, unspecified; R19.7 Diarrhea, unspecified; Z90.49 Acquired absence of other specified parts of digestive tract; Z98.51 Tubal ligation status; F17.200 Nicotine dependence, unspecified, uncomplicated; Z88.8 Allergy status to other drugs, medicaments and biological substances
CPT/HCPCS: 36415; 71046; 80053; 81001; 81025; 82553; 83605; 83690; 83735; 83880; 84484; 85025; 85379; 85610; 85730; 87086; 93005; 96360; 99285; J7030; J8540; Q0162

== ENCOUNTER 2019-01-20 00:54 | Emergency (ER) | payer SELFPAY ==
[~2019-01-20] VITALS: Ht 165.1 cm; Wt 83.9 kg
[2019-01-20 02:23] LABS: BILIRUBIN,URINE NEGATIVE (NEG); CLARITY,URINE CLEAR; COLOR,URINE YELLOW; NITRITE,URINE NEGATIVE (NEG); PROTEIN,URINE NEGATIVE (NEG-TRACE); UROBILINOGEN,URINE 0.2 mg/dL (0.2 mg/dL)
[2019-01-20 02:24] LABS: BASO # 0.1 x10^3/uL (0.0-0.2); BASO % 1 % (0-3); EOS # 0.3 x10^3/uL (0.0-0.7); EOS % 2 % (0-3); HEMATOCRIT 36.7 % (36.0-47.0); HEMOGLOBIN 12.3 g/dL (12.0-15.5); LYMPH # 3.4 x10^3/uL (1.0-4.8); LYMPH % 21 % (24-48); MEAN CORPUSCULAR HEMOGLOBIN 31 pg (25-35); MEAN CORPUSCULAR HGB CONC 34 g/dL (31-37); MEAN CORPUSCULAR VOLUME 93 fL (79-100); MONO # 0.9 x10^3/uL (0.0-1.1); MONO % 6 % (0-9); NEUT % 70 % (31-73); PLATELET COUNT 271 x10^3/uL (140-400); RED BLOOD COUNT 3.97 x10^6/uL (3.50-5.40); RED CELL DISTRIBUTION WIDTH 14.9 % (11.5-14.5); WHITE BLOOD COUNT 15.7 x10^3/uL (4.0-11.0)
[2019-01-20 02:29] LABS: SQUAMOUS EPITHELIAL CELL,UR FEW /LPF
[2019-01-20 02:30] LABS: BACTERIA,URINE 0 /HPF (0-FEW); BARBITURATES NEG (NEG); BENZODIAZEPINES NEG (NEG); CANNABINOIDS POS (NEG); COCAINE NEG (NEG); METHADONE NEG (NEG); OPIATES NEG (NEG); PHENCYCLIDINE NEG (NEG); RBC,URINE RARE /HPF (0-2); U PREG PATIENT NEGATIVE (NEG); WBC,URINE RARE /HPF (0-4)
[2019-01-20] MEDS ORDERED: LABETALOL 20 MG/4 ML DISP.SYRIN. IVP ONE (02:30)
[2019-01-20] MEDS ORDERED: IV NORMAL SALINE 1000ML BAG 1,000 ML IV ONE (02:30)
[2019-01-20] MEDS ORDERED: fentaNYL PF VIAL 100 MCG/2 ML VIAL IV ONE (02:30)
[2019-01-20 02:32] LABS: AMPHETAMINE/METHAMPHETAMINE NEG (NEG)
[2019-01-20 02:32] LABS: PROTHROMBIN TIME PATIENT 12.6 SEC (11.7-14.0)
[2019-01-20 02:35] VITALS: BP 151/74
[2019-01-20 02:43] LABS: CALCIUM 9.2 mg/dL (8.5-10.1); CREATININE 0.9 mg/dL (0.6-1.0); POTASSIUM 3.8 mmol/L (3.5-5.1)
[2019-01-20 02:46] LABS: ALBUMIN 3.4 g/dL (3.4-5.0); ALBUMIN/GLOBULIN RATIO 0.8 (1.0-1.7); TOTAL BILIRUBIN 0.2 mg/dL (0.2-1.0); TOTAL PROTEIN 7.5 g/dL (6.4-8.2)
[2019-01-20] MEDS ORDERED: CONTRAST GIVEN. MC PRN (03:00)
--- NOTE | 2019-01-20 03:07 | PHYS DOC ---
Past Medical History Past Medical History: COPD, Pancreatitis Past Surgical History: Cholecystectomy, Tubal ligation Alcohol Use: Occasionally Drug Use: Marijuana Adult General Chief Complaint Chief Complaint: CHEST PAIN-NON CARDIAC NATURE HPI HPI Patient is a 43 year old who is presenting with bilateral under the rib discomfort she says it feels like somebody is squeezing her there. She has had this symptoms ever since January 10 came her for bronchitis she actually her cough is much better but she is having worsening squeezing pain it feels like somebody is grabbing her underneath both breasts she does not know for sure if it's underneath the ribs or in the abdomen but she also feels in her back it's squeezing it's been constant for one week worsening today. Patient has mild shortness of breath associated with that she does carry a history of COPD. Positive nausea Review of Systems Review of Systems Constitutional: Denies fever or chills [] Eyes: Denies change in visual acuity, redness, or eye pain [] HENT: Denies nasal congestion or sore throat [] Respiratory: Denies cough or shortness of breath [] Cardiovascular: No additional information not addressed in HPI [] GI: Denies abdominal pain, nausea, vomiting, bloody stools or diarrhea [] : Denies dysuria or hematuria [] Musculoskeletal: Denies back pain or joint pain [] Integument: Denies rash or skin lesions [] Neurologic: Denies headache, focal weakness or sensory changes [] Endocrine: Denies polyuria or polydipsia [] All other systems were reviewed and found to be within normal limits, except as documented in this note. Current Medications Current Medications Current Medications Medications (Trade) Dose Ordered Sig/John Start Time Stop Time Status Last Admin Dose Admin Fentanyl Citrate (Fentanyl 2ml Vial) 50 mcg 1X ONCE 01/20/19 02:30 01/20/19 02:31 DC 01/20/19 02:33 50 MCG Info (CONTRAST GIVEN -- Rx MONITORING) 1 each PRN DAILY PRN 01/20/19 03:00 01/22/19 02:59 Iohexol (Omnipaque 300 Mg/ml) 75 ml 1X ONCE 01/20/19 03:30 01/20/19 03:31 DC 01/20/19 03:03 75 ML Labetalol HCl (Normodyne Iv Push) 10 mg 1X ONCE 01/20/19 02:30 01/20/19 02:31 DC Sodium Chloride 1,000 ml @ 1,000 mls/hr 1X ONCE 01/20/19 02:30 01/20/19 03:29 DC 01/20/19 02:32 1,000 MLS/HR Allergies Allergies Allergies Coded Allergies Type Severity Reaction Last Updated Verified terbutaline Allergy Severe 04/21/16 Yes Physical Exam Physical Exam Constitutional: Well developed, well nourished, moderate distress, non-toxic appearance. [] HENT: Normocephalic, atraumatic, bilateral external ears normal, oropharynx moist, no oral exudates, nose normal. [] Eyes: PERRLA, EOMI, conjunctiva normal, no discharge. [] Neck: Normal range of motion, no tenderness, supple, no stridor. [] Cardiovascular: Mild tachycardia no definite murmurs Lungs & Thorax: Bilateral breath sounds clear to auscultation [] Abdomen: Bowel sounds normal, soft, right upper quadrant tenderness. Of note patient tells me she is status post cholecystectomy decreased breath sounds at bilateral bases Skin: Warm, dry, no erythema, no rash. [] Back: No tenderness, no CVA tenderness. [] Extremities: No tenderness, no cyanosis, no clubbing, ROM intact, no edema. [] Neurologic: Alert and oriented X 3, normal motor function, normal sensory function, no focal deficits noted. [] Psychologic: Affect normal, judgement normal, mood normal. [] Current Patient Data Vital Signs Vital Signs Date Time Temp Pulse Resp B/P (MAP) Pulse Ox O2 Delivery O2 Flow Rate FiO2 01/20/19 02:33 25 96 Room Air 01/20/19 01:20 98.1 108 123/70 (87) 98.1 Lab Values Laboratory Tests Test 01/20/19 01:57 01/20/19 02:03 White Blood Count 15.7 x10^3/uL (4.0-11.0) H Red Blood Count 3.97 x10^6/uL (3.50-5.40) Hemoglobin 12.3 g/dL (12.0-15.5) Hematocrit 36.7 % (36.0-47.0) Mean Corpuscular Volume 93 fL (79-100) Mean Corpuscular Hemoglobin 31 pg (25-35) Mean Corpuscular Hemoglobin Concent 34 g/dL (31-37) Red Cell Distribution Width 14.9 % (11.5-14.5) H Platelet Count 271 x10^3/uL (140-400) Neutrophils (%) (Auto) 70 % (31-73) Lymphocytes (%) (Auto) 21 % (24-48) L Monocytes (%) (Auto) 6 % (0-9) Eosinophils (%) (Auto) 2 % (0-3) Basophils (%) (Auto) 1 % (0-3) Neutrophils # (Auto) 11.0 x10^3uL (1.8-7.7) H Lymphocytes # (Auto) 3.4 x10^3/uL (1.0-4.8) Monocytes # (Auto) 0.9 x10^3/uL (0.0-1.1) Eosinophils # (Auto) 0.3 x10^3/uL (0.0-0.7) Basophils # (Auto) 0.1 x10^3/uL (0.0-0.2) Prothrombin Time 12.6 SEC (11.7-14.0) Prothrombin Time INR 1.0 (0.8-1.1) Sodium Level 139 mmol/L (136-145) Potassium Level 3.8 mmol/L (3.5-5.1) Chloride Level 104 mmol/L (98-107) Carbon Dioxide Level 23 mmol/L (21-32) Anion Gap 12 (6-14) Blood Urea Nitrogen 15 mg/dL (7-20) Creatinine 0.9 mg/dL (0.6-1.0) Estimated GFR (Cockcroft-Gault) 68.0 BUN/Creatinine Ratio 17 (6-20) Glucose Level 126 mg/dL (70-99) H Calcium Level 9.2 mg/dL (8.5-10.1) Total Bilirubin 0.2 mg/dL (0.2-1.0) Aspartate Amino Transferase (AST) 18 U/L (15-37) Alanine Aminotransferase (ALT) 47 U/L (14-59) Alkaline Phosphatase 69 U/L (46-116) Troponin I Quantitative < 0.017 ng/mL (0.000-0.055) BD-Okl-F-Type Natriuretic Peptide 34 pg/mL (0-124) Total Protein 7.5 g/dL (6.4-8.2) Albumin 3.4 g/dL (3.4-5.0) Albumin/Globulin Ratio 0.8 (1.0-1.7) L Lipase 167 U/L (73-393) Urine Collection Type Unknown Urine Color Yellow Urine Clarity Clear Urine pH 6.0 Urine Specific [place] <=1.005 Urine Protein Negative mg/dL (NEG-TRACE) Urine Glucose (UA) Negative mg/dL (NEG) Urine Ketones (Stick) Negative mg/dL (NEG) Urine Blood Trace (NEG) Urine Nitrite Negative (NEG) Urine Bilirubin Negative (NEG) Urine Urobilinogen Dipstick 0.2 mg/dL (0.2 mg/dL) Urine Leukocyte Esterase Negative (NEG) Urine RBC Rare /HPF (0-2) Urine WBC Rare /HPF (0-4) Urine Squamous Epithelial Cells Few /LPF Urine Bacteria 0 /HPF (0-FEW) Urine Mucus Slight /LPF Urine Test Negative (NEG) Urine Opiates Screen Neg (NEG) Urine Methadone Screen Neg (NEG) Urine Barbiturates Neg (NEG) Urine Phencyclidine Screen Neg (NEG) Urine Amphetamine/Methamphetamine Neg (NEG) Urine Benzodiazepines Screen Neg (NEG) Urine Cocaine Screen Neg (NEG) Urine Cannabinoids Screen Pos (NEG) Urine Ethyl Alcohol Neg (NEG) Laboratory Tests 01/20/19 01:57 Laboratory Tests 01/20/19 01:57 EKG EKG []EKG shows a sinus tachycardia rate of 105 no acute ischemic changes noted interpreted by me the time of encounter QTc 440 Radiology/Procedures Radiology/Procedures The kidneys enhance symmetrically. There is no suspicious renal mass. There is no hydronephrosis. There are no suspected calculi within the kidneys, ureters or urinary bladder. Urinary bladder is within normal limits given degree of distention. Uterus is normal by CT. Follicular changes are identified in the adnexa bilaterally. Right ovary measures 4.2 x 3.0 cm. Left ovary measures 2.6 x 1.9 cm. No suspicious osseous abnormality is identified. IMPRESSION: No evidence for bowel obstruction or inflammation. Electronically signed by: Jaquelin Bhatti MD (01/20/2019 3:16 AM) [facility] [] Impressions: My read chest x-ray negative acute Course & Med Decision Making Course & Med Decision Making Pertinent Labs and Imaging studies reviewed. (See chart for details) []Initially blood pressure and heart rate were elevated this resolved without labetalol. We gave pain control. This is a 43-year-old female with a history of COPD and smoking was presenting with some at least a week if not longer of squeezing discomfort underneath both breasts rib area. Did have some mild abdominal tenderness given the leukocytosis I feel that we should image her abdomen and pelvis to rule out a perihepatic or intra-abdominal etiology of her symptoms. She is status post cholecystectomy already. ct scan done due to leukocytosis. this was normal. pt felt a little better int he er. suspect chest wall pain pt given cough syrup with codeine to help her cough. no pna seen on cxr. pt reassured. ddimer /trop negative last week. Dragon Disclaimer Dragon Disclaimer This electronic medical record was generated, in whole or in part, using a voice recognition dictation system. Departure Departure Impression: Primary Impression: Chest wall pain Disposition: HOME, SELF-CARE Condition: STABLE Referrals: Ry MAS MD (PCP) Scripts Guaifenesin/Codeine Phosphate (GUAIFENESIN AC COUGH SYRUP) 473 Ml Liquid 5 ML PO Q4HRS PRN for COUGH, #120 ML Prov: YESI GRUBBS MD 01/20/19 YESI GRUBBS MD Jan 20, 2019 03:07
--- NOTE | 2019-01-20 03:20 | RAD ---
PQRS Compliance Statement: One or more of the following individualized dose reduction techniques were utilized for this examination: 1. Automated exposure control 2. Adjustment of the mA and/or kV according to patient size 3. Use of iterative reconstruction technique CT abdomen/pelvis with contrast 01/20/2019 2:31 AM INDICATION: Upper abdominal pain, leukocytosis COMPARISON: CT abdomen/pelvis November 22, 2010 TECHNIQUE: Multiple axial CT images of the abdomen and pelvis were obtained after the intravenous administration of 75 mL Omnipaque 300. Coronal and sagittal reformats are provided. FINDINGS: Lung bases are clear. Heart size is within normal limits. Liver, spleen, bilateral adrenal glands and pancreas are normal in appearance. Gallbladder surgically absent. No intrahepatic or extrahepatic biliary ductal dilatation. The abdominal aorta is normal in course and caliber. There are no pathologically enlarged lymph nodes in the abdomen and pelvis. There is no abdominal free fluid. There is no free intraperitoneal air. Small and large bowel are normal in caliber. There is no evidence for bowel obstruction. There are no pericolonic inflammatory changes. A normal, nondilated appendix is visualized without adjacent inflammatory changes. The kidneys enhance symmetrically. There is no suspicious renal mass. There is no hydronephrosis. There are no suspected calculi within the kidneys, ureters or urinary bladder. Urinary bladder is within normal limits given degree of distention. Uterus is normal by CT. Follicular changes are identified in the adnexa bilaterally. Right ovary measures 4.2 x 3.0 cm. Left ovary measures 2.6 x 1.9 cm. No suspicious osseous abnormality is identified. IMPRESSION: No evidence for bowel obstruction or inflammation. Electronically signed by: Jaquelin Bhatti MD (01/20/2019 3:16 AM) [facility]
[2019-01-20] MEDS ORDERED: IOHEXOL 300 MG/ML 100ML VIAL. IV ONE (03:30)
[2019-01-20] MEDS ORDERED: GUAI473L15 PO (03:46)
--- NOTE | 2019-01-20 03:57 | RAD ---
Chest radiograph 01/20/2019 1:53 AM INDICATION: Chest pain COMPARISON: January 10, 2019 TECHNIQUE: Portable upright frontal view of the chest is provided. FINDINGS: The cardiomediastinal silhouette is within normal limits. There are no pleural effusions. There is no pulmonary vascular congestion. There is no pneumothorax. The lungs are clear. Stable 7 mm calcified granuloma in the left lung base. No significant osseous abnormality is identified. IMPRESSION: No acute cardiopulmonary process. Electronically signed by: Jaquelin Bhatti MD (01/20/2019 3:54 AM) [facility]
--- NOTE | 2019-01-20 08:49 | EKG ---
[facility] [address] [place] [address] Test Date: 2019-01-20 Test Time: 01:49:32 Pat Name: ESTEFANY TAYLOR Department: Room: Gender: F System Support Analyst: : 1975 Requested By: YESI GRUBBS Order Number: [id number] Reading MD: Measurements Intervals [place] Rate: 104 P: 65 [place]: 138 QRS: 32 QRSD: 80 T: 41 QT: 330 QTc: 440 Interpretive Statements SINUS TACHYCARDIA NON SPECIFIC T ABNORMALITY BORDERLINE ECG No previous ECG available for comparison
== END 2019-01-20 04:00 | disposition home or self-care (01) ==
LOC: ER 00:54
DX: R07.89 Other chest pain (principal); R00.0 Tachycardia, unspecified; R10.11 Right upper quadrant pain; R06.02 Shortness of breath; J44.9 Chronic obstructive pulmonary disease, unspecified; Z90.49 Acquired absence of other specified parts of digestive tract; Z98.51 Tubal ligation status; Z88.8 Allergy status to other drugs, medicaments and biological substances
CPT/HCPCS: 36415; 71045; 74177; 80053; 80307; 81001; 81025; 83690; 83880; 84484; 85025; 85610; 93005; 96374; 99285; J3010; J7030; Q9967

== ENCOUNTER 2019-12-17 09:30 | Emergency (ER) | payer SELFPAY ==
[~2019-12-17] VITALS: Ht 162.6 cm; Wt 84.0 kg
[~2019-12-17 09:30] MED LIST changes: +GUAI473L15 PO
[2019-12-17] MEDS ORDERED: IV NORMAL SALINE 1000ML BAG 1,000 ML IV ONE ×2 (11:30→13:45)
[2019-12-17] MEDS ORDERED: METOCLOPRAMIDE HCL 10 MG/2 ML VIAL. IVP ONE (11:30)
[2019-12-17] MEDS ORDERED: FAMOTIDINE 20 MG/2 ML VIAL IVP ONE (11:30)
[2019-12-17 11:32] LABS: BASO # 0.2 x10^3/uL (0.0-0.2); BASO % 1 % (0-3); EOS # 0.2 x10^3/uL (0.0-0.7); EOS % 2 % (0-3); HEMATOCRIT 38.5 % (36.0-47.0); HEMOGLOBIN 12.6 g/dL (12.0-15.5); LYMPH # 2.1 x10^3/uL (1.0-4.8); LYMPH % 15 % (24-48); MEAN CORPUSCULAR HEMOGLOBIN 28 pg (25-35); MEAN CORPUSCULAR HGB CONC 33 g/dL (31-37); MEAN CORPUSCULAR VOLUME 86 fL (79-100); MONO # 0.6 x10^3/uL (0.0-1.1); MONO % 5 % (0-9); NEUT # 10.8 x10^3/uL (1.8-7.7); NEUT % 78 % (31-73); PLATELET COUNT 316 x10^3/uL (140-400); RED BLOOD COUNT 4.46 x10^6/uL (3.50-5.40); RED CELL DISTRIBUTION WIDTH 15.7 % (11.5-14.5); WHITE BLOOD COUNT 13.9 x10^3/uL (4.0-11.0)
[2019-12-17 11:44] LABS: CALCIUM 8.9 mg/dL (8.5-10.1); CREATININE 0.8 mg/dL (0.6-1.0); GFR 77.6; POTASSIUM 4.1 mmol/L (3.5-5.1)
[2019-12-17 11:51] LABS: ALBUMIN 3.7 g/dL (3.4-5.0); ALBUMIN/GLOBULIN RATIO 0.9 (1.0-1.7); TOTAL BILIRUBIN 0.3 mg/dL (0.2-1.0); TOTAL PROTEIN 7.7 g/dL (6.4-8.2)
--- NOTE | 2019-12-17 12:34 | EKG ---
[facility] [address] [place] [address] Test Date: 2019-12-17 Test Time: 11:09:41 Pat Name: ESTEFANY TAYLOR Department: Room: Gender: F Knowledge Engineer: : 1975 Requested By: RICK AGUILAR Order Number: [id number] Reading MD: Pancho Menard Measurements Intervals [place] Rate: 105 P: 71 [place]: 120 QRS: 31 QRSD: 80 T: 55 QT: 330 QTc: 440 Interpretive Statements SINUS TACHYCARDIA LEFT ATRIAL ABNORMALITY ABNORMAL ECG Electronically Signed On 12-18-2019 8:04:33 CDT by Pancho Menard
--- NOTE | 2019-12-17 13:14 | PHYS DOC ---
Past Medical History Past Medical History: COPD, Pancreatitis Past Surgical History: Cholecystectomy, Tubal ligation Smoking Status: Former Smoker Additional Information: states she stopped smoking 1 weeks ago Alcohol Use: Occasionally Drug Use: Marijuana General Adult EDM: Chief Complaint: COUGH HPI: HPI: 44 yo F PMH COPD and h/o pancreatitis, presents to the ed with c/o nausea, nbnb vomiting and loose watery diarrhea stating "I've been sick since Monday," associated fever and shortness of breath, states "I can't keep anything down." Former thc use 3 months ago. Patient states she feels the vomiting is making her nonproductive cough, COPD worse. Cough with associated bilateral upper chest pain-reproduced when coughing x4 days, Patient states she has been working since October 11 and has been self quarantining. No known exposure to confirmed COVID, no known sick contacts. Cannot recall any poorly prepared foods. ROS: Denies associated dyspnea, sore throat, melena, hematochezia, hematemesis, back pain, neurologic deficits, headache, neck stiffness, dysuria, hematuria, flank pain, hemoptysis, leg swelling, Review of Systems: Review of Systems: Constitutional: Denies fever or chills. [] Eyes: Denies change in visual acuity. [] HENT: Denies nasal congestion or sore throat. [] Respiratory: Denies cough or shortness of breath. [] Cardiovascular: Denies chest pain or edema. [] GI: Denies abdominal pain, nausea, vomiting, bloody stools or diarrhea. [] : Denies dysuria. [] Musculoskeletal: Denies back pain or joint pain. [] Integument: Denies rash. [] Neurologic: Denies headache, focal weakness or sensory changes. [] Endocrine: Denies polyuria or polydipsia. [] Lymphatic: Denies swollen glands. [] Psychiatric: Denies depression or anxiety. [] Heart Score: Risk Factors: Risk Factors: DM, Current or recent (<one month) smoker, HTN, HLP, family history of CAD, obesity. Risk Scores: Score 0 - 3: 2.5% MACE over next 6 weeks - Discharge Home Score 4 - 6: 20.3% MACE over next 6 weeks - Admit for Clinical Observation Score 7 - 10: 72.7% MACE over next 6 weeks - Early Invasive Strategies Current Medications: Current Medications Medications (Trade) Dose Ordered Sig/John Start Time Stop Time Status Last Admin Dose Admin Famotidine (Pepcid Vial) 20 mg 1X ONCE 12/17/19 11:30 12/17/19 11:36 DC 12/17/19 11:57 20 MG Metoclopramide HCl (Reglan Vial) 10 mg 1X ONCE 12/17/19 11:30 12/17/19 11:36 DC 12/17/19 11:57 10 MG Sodium Chloride 1,000 ml @ 1,000 mls/hr 1X ONCE 12/17/19 11:30 12/17/19 12:29 DC 12/17/19 11:57 1,000 MLS/HR Allergies: Allergies: Allergies Coded Allergies Type Severity Reaction Last Updated Verified terbutaline Allergy Severe 04/21/16 Yes Physical Exam: PE: Constitutional: Well developed, well nourished, no acute distress, non-toxic appearance, afebrile HENT: Normocephalic, atraumatic, bilateral external ears normal, oropharynx dry, no oral exudates, nose normal. [] Eyes: EOMI, conjunctiva normal, no discharge. [] Neck: Normal range of motion, no tenderness, supple, no stridor. [] Cardiovascular:Heart rate regular rhythm, no murmur [] Lungs & Thorax: Bilateral breath sounds clear to auscultation [] Abdomen: Bowel sounds normal, soft, no tenderness, no masses, no pulsatile masses, active yellow emesis in basin Skin: Warm, dry, no erythema, no rash. [] Back: No tenderness, no CVA tenderness. [] Extremities: No tenderness, no cyanosis, no clubbing, ROM intact, no edema. [] Neurologic: Alert and oriented X 3, normal motor function, normal sensory function, no focal deficits noted. [] Psychologic: Affect normal, judgement normal, mood normal. [] Current Patient Data: Labs: Laboratory Tests Test 12/17/19 11:07 White Blood Count 13.9 x10^3/uL (4.0-11.0) H Red Blood Count 4.46 x10^6/uL (3.50-5.40) Hemoglobin 12.6 g/dL (12.0-15.5) Hematocrit 38.5 % (36.0-47.0) Mean Corpuscular Volume 86 fL (79-100) Mean Corpuscular Hemoglobin 28 pg (25-35) Mean Corpuscular Hemoglobin Concent 33 g/dL (31-37) Red Cell Distribution Width 15.7 % (11.5-14.5) H Platelet Count 316 x10^3/uL (140-400) Neutrophils (%) (Auto) 78 % (31-73) H Lymphocytes (%) (Auto) 15 % (24-48) L Monocytes (%) (Auto) 5 % (0-9) Eosinophils (%) (Auto) 2 % (0-3) Basophils (%) (Auto) 1 % (0-3) Neutrophils # (Auto) 10.8 x10^3/uL (1.8-7.7) H Lymphocytes # (Auto) 2.1 x10^3/uL (1.0-4.8) Monocytes # (Auto) 0.6 x10^3/uL (0.0-1.1) Eosinophils # (Auto) 0.2 x10^3/uL (0.0-0.7) Basophils # (Auto) 0.2 x10^3/uL (0.0-0.2) Sodium Level 140 mmol/L (136-145) Potassium Level 4.1 mmol/L (3.5-5.1) Chloride Level 103 mmol/L (98-107) Carbon Dioxide Level 24 mmol/L (21-32) Anion Gap 13 (6-14) Blood Urea Nitrogen 10 mg/dL (7-20) Creatinine 0.8 mg/dL (0.6-1.0) Estimated GFR (Cockcroft-Gault) 77.6 BUN/Creatinine Ratio 13 (6-20) Glucose Level 102 mg/dL (70-99) H Calcium Level 8.9 mg/dL (8.5-10.1) Magnesium Level 2.1 mg/dL (1.8-2.4) Total Bilirubin 0.3 mg/dL (0.2-1.0) Aspartate Amino Transferase (AST) 30 U/L (15-37) Alanine Aminotransferase (ALT) 46 U/L (14-59) Alkaline Phosphatase 94 U/L (46-116) Creatine Kinase 95 U/L (26-192) Troponin I Quantitative < 0.017 ng/mL (0.000-0.055) Total Protein 7.7 g/dL (6.4-8.2) Albumin 3.7 g/dL (3.4-5.0) Albumin/Globulin Ratio 0.9 (1.0-1.7) L Lipase 77 U/L (73-393) Laboratory Tests 12/17/19 11:07 Laboratory Tests 12/17/19 11:07 Vital Signs: Vital Signs Date Time Temp Pulse Resp B/P (MAP) Pulse Ox O2 Delivery O2 Flow Rate FiO2 12/17/19 10:57 98.7 112 18 153/83 (106) 100 Room Air 98.7 EKG: EKG: Sinus tachycardia 105 bpm, no axis deviation, normal intervals, no T wave inversions, no ST elevations or ST depressions Radiology/Procedures: Radiology/Procedures: IMAGING REPORT Signed PATIENT: ESTEFANY TAYLOR ACCOUNT: [id number] : 1975 LOCATION: ER AGE: 44 SEX: F EXAM STATUS: REG ER ORD. PHYSICIAN: RICK AGUILAR DO REASON: n/v/d 22 PROCEDURE: CHEST AP ONLY Single view of the chest. 12/17/2019 1:20 PM Indication: Nausea, vomiting, diarrhea Comparison: Chest radiograph January 20, 2019 Findings: There is no pneumothorax or pleural effusion. Heart size is normal. Mild central bronchovascular thickening is seen.. Mild interstitial coarsening is seen. Findings could represent a mild or atypical infectious process. No acute osseous changes are seen. IMPRESSION: Mild bronchovascular thickening and perihilar interstitial coarsening. Findings may represent a mild viral or atypical infectious process. Electronically signed by: Rik Dior MD (12/17/2019 1:39 PM) [id number] DICTATED and SIGNED BY: RIK DIOR MD DATE: 12/17/19 1339 Impression: Pt reevaluated and states "I could finally get some sleep now that the nausea is controlled." I offered admission for dehydration, pt declined. Abdomen soft - h/o cholecystectomy. Nonspecific leukocytosis no bandemia. Tachycardia improved with 2 L normal saline saline bolus. Concern for atypical process on cxr-given copd will prescribe azithro, prednisone and albuterol. Will also prescribe zofran odt-slowly advance from a liquid diet to brat to solid diet. Low suspicion for life threatening surgical abdomen, medication overdose, atypical chest pain or other life-threatening conditions. Will refer to local health department for COVID testing. Patient given strict ED return precautions for fever, abdominal pain or worsening dehydration. Encouraged urgent PMD follow-up in 24 to 48 hours for reevaluation. All patient's questions were answered and she was stable at time of discharge. Course & Med Decision Making: Course & Med Decision Making Pertinent Labs and Imaging studies reviewed. (See chart for details) [] Dragon Disclaimer: Dragon Disclaimer: This electronic medical record was generated, in whole or in part, using a voice recognition dictation system. Departure Departure Impression: Primary Impression: Vomiting and diarrhea Additional Impression: Atypical pneumonia Disposition: 01 HOME, SELF-CARE Condition: STABLE Referrals: yR MAS MD (PCP) Patient Instructions: Nausea and Vomiting, Pneumonia, Adult Scripts Ondansetron Hcl (ZOFRAN) 4 Mg Tablet 1 TAB PO PRN Q6-8HRS for nausea, #12 TAB Prov: RICK AGUILAR DO 12/17/19 Albuterol Sulfate (VENTOLIN HFA INHALER) 18 Gm Hfa.aer.ad 2 PUFF INH Q4HRS for FOR ASTHMA for 30 Days, #1 INHALER 2 Refills Prov: RICK AGUILAR DO 12/17/19 Prednisone (PREDNISONE) 20 Mg Tablet 2 TAB PO DAILY, #5 TAB Prov: RICK AGUILAR DO 12/17/19 Azithromycin (AZITHROMYCIN TABLET) 250 Mg Tablet 1 PKG PO UD for 5 Days, #6 TAB 0 Refills 2 the first day followed by 1 for days 2-5 Prov: RICK AGUILAR DO 12/17/19 RICK AGUILAR DO December 17, 2019 13:13
--- NOTE | 2019-12-17 13:42 | RAD ---
Single view of the chest. 12/17/2019 1:20 PM Indication: Nausea, vomiting, diarrhea Comparison: Chest radiograph January 20, 2019 Findings: There is no pneumothorax or pleural effusion. Heart size is normal. Mild central bronchovascular thickening is seen.. Mild interstitial coarsening is seen. Findings could represent a mild or atypical infectious process. No acute osseous changes are seen. IMPRESSION: Mild bronchovascular thickening and perihilar interstitial coarsening. Findings may represent a mild viral or atypical infectious process. Electronically signed by: iRk Amato MD (12/17/2019 1:39 PM) [id number]
[2019-12-17] MEDS ORDERED: AZIT250T6 PO (14:19)
[2019-12-17] MEDS ORDERED: PRED20TA PO (14:19)
[2019-12-17] MEDS ORDERED: ONDA4TAB7 PO (14:20)
[2019-12-17] MEDS ORDERED: VENTOLIN HFA18 GM INH (14:20)
[2019-12-17 14:27] VITALS: BP 128/78
== END 2019-12-17 15:10 | disposition home or self-care (01) ==
LOC: ER 09:30
DX: J18.9 Pneumonia, unspecified organism (principal); R11.2 Nausea with vomiting, unspecified; R19.7 Diarrhea, unspecified; R06.02 Shortness of breath; R05 Cough; R07.89 Other chest pain; J44.9 Chronic obstructive pulmonary disease, unspecified; K85.90 Acute pancreatitis without necrosis or infection, unspecified; F17.200 Nicotine dependence, unspecified, uncomplicated; F12.90 Cannabis use, unspecified, uncomplicated; Z90.49 Acquired absence of other specified parts of digestive tract; Z98.890 Other specified postprocedural states; Z88.8 Allergy status to other drugs, medicaments and biological substances
CPT/HCPCS: 36415; 71045; 80053; 82550; 83690; 83735; 84484; 85025; 93005; 96361; 96374; 96375; 99285; J2765; J3490; J7030